=== PATIENT | female | born 1985 | race Hispanic/Latino ===

== ENCOUNTER 2017-02-03 15:38 | Emergency (ER) | payer OTHER ==
[2017-02-03 15:44] VITALS: BP 125/81; PULSE 76; RESP 16; TEMP 97.7; O2SAT 100
[2017-02-03] MEDS ORDERED: Emtricitabine-Tenofovir 200 mg-300 mg Tab PO STA ×2 (15:45→17:13)
[2017-02-03 16:23] LABS: RBC URINE 1 /hpf (0-3); URINE BILIRUBIN NEGATIVE (NEGATIVE); URINE BLOOD NEGATIVE (NEGATIVE); URINE COLOR Yellow (YELLOW); URINE GLUCOSE (UA) NORMAL (Normal); URINE KETONE NEGATIVE (NEGATIVE); URINE LEUKOCYTE ESTERASE NEG Leu/uL (Negative); URINE PROTEIN NEGATIVE (NEGATIVE); WBC URINE < 1 /hpf (0-5)
[2017-02-03 16:40] LABS: BASO % 0.5 % (0.0-2.0); EOS # 0.1 K/uL (0.0-0.7); EOS % 1.1 % (0.0-4.0); HEMATOCRIT 38.4 % (34.0-47.0); LYMPH # 2.6 K/uL (1.0-4.3); LYMPH % 38.1 % (20.0-40.0); MEAN CELL VOLUME 87.7 fL (81.0-99.0); MEAN CORPUSCULAR HGB CONC 34.2 g/dL (33.0-37.0); MEAN PLATELET VOLUME 9.6 fL (7.2-11.7); MONO # 0.4 K/uL (0.0-0.8); MONO % 6.1 % (0.0-10.0); RED CELL DISTRIBUTION WIDTH 13.4 % (11.5-14.5); WHITE BLOOD COUNT 6.9 K/uL (4.8-10.8)
[2017-02-03 17:01] LABS: CHLORIDE 101 mmol/L (98-107)
[2017-02-03 17:02] LABS: POTASSIUM 3.7 mmol/L (3.6-5.2); SODIUM 135 mmol/L (132-148)
[2017-02-03 17:04] LABS: AMYLASE 130 U/L (30-110); BILIRUBIN,TOTAL 0.8 mg/dL (0.2-1.3); CARBON DIOXIDE 24 mmol/L (22-30); GFR AFRICAN-AMERICAN > 60
[2017-02-03 17:05] LABS: ALKALINE PHOSPHATASE 47 U/L (38-126); ALT/SGPT 24 U/L (9-52); AST/SGOT 26 U/L (14-36); BLOOD UREA NITROGEN 11 mg/dL (7-17); CALCIUM 9.2 mg/dl (8.6-10.4); GLUCOSE,RANDOM 79 mg/dL (65-105); TOTAL PROTEIN 8.1 g/dL (6.3-8.3)
[2017-02-03] MEDS ORDERED: Emtricitabine-Tenofovir 200 mg-300 mg Tab PO NR (17:15)
--- NOTE | 2017-02-03 17:28 | C.PDOC ---
Time Seen by Provider: 02/03/17 15:42 Chief Complaint (Nursing): Needle Stick Past Medical History Vital Signs: Last Vital Signs Temp 97.7 F 02/03/17 15:42 Pulse 76 02/03/17 15:42 Resp 16 02/03/17 15:42 BP 125/81 02/03/17 15:42 Pulse Ox 100 02/03/17 15:42 - Social History Hx Alcohol Use: No Hx Substance Use: No - Immunization History Hx Tetanus Toxoid Vaccination: No Hx Influenza Vaccination: No Hx Pneumococcal Vaccination: No ED Course And Treatment - Laboratory Results Result Diagrams: 02/03/17 16:22 02/03/17 16:22 O2 Sat by Pulse Oximetry: 100 Disposition Counseled Patient/Family Regarding: Diagnosis - Disposition Referrals: [facility] [Outside] Disposition: HOME/ ROUTINE Disposition Time: 17:23 Condition: STABLE Prescriptions: Dolutegravir Sodium [Tivicay] 50 mg PO DAILY #3 tab Emtricitabine/Tenofovir (Tdf) [Truvada 200 mg-300 mg Tablet] 1 each PO DAILY #3 tablet Instructions: Needle Stick Injuries (ED) Forms: [facility] (Bengali), General Discharge Instructions - POA Present On Arrival: None - Clinical Impression Clinical Impression: Needle stick injury
--- NOTE | 2017-02-03 17:39 | C.PDOC ---
History Of Present Illness 31 yo female c/o puncture wound to right 2nd finger. Pt put scalpel in her pant pocket from previous I&D procedure and punctured her finger. No change in sensation. Time Seen by Provider: 02/03/17 15:42 Chief Complaint (Nursing): Needle Stick History Per: Patient History/Exam Limitations: no limitations Onset/Duration Of Symptoms: Mins Current Symptoms Are (Timing): Still Present Past Medical History Vital Signs: Last Vital Signs Temp 97.7 F 02/03/17 15:42 Pulse 76 02/03/17 15:42 Resp 16 02/03/17 15:42 BP 125/81 02/03/17 15:42 Pulse Ox 100 02/03/17 17:31 Family History: States: Unknown Family Hx - Social History Hx Alcohol Use: No Hx Substance Use: No - Immunization History Hx Tetanus Toxoid Vaccination: No Hx Influenza Vaccination: No Hx Pneumococcal Vaccination: No Review Of Systems Except As Marked, All Systems Reviewed And Found Negative. Physical Exam - Physical Exam Appears: Well, Non-toxic, No Acute Distress Skin: Warm, Dry, Other ((+) puncture wound to right second finger) Head: Atraumatic, Normacephalic Eye(s): bilateral: Normal Inspection, EOMI Nose: Normal Oral Mucosa: Moist Neck: Normal, Supple Chest: Symmetrical Respiratory: No Accessory Muscle Use Extremity: Normal ROM, Capillary Refill (< 2 sec) Pulses: Left Radial: Normal, Right Radial: Normal Neurological/Psych: Oriented x3, Normal Speech, Normal Motor, Normal Sensation ED Course And Treatment - Laboratory Results Result Diagrams: 02/03/17 16:22 02/03/17 16:22 O2 Sat by Pulse Oximetry: 100 Progress Note: Tetanus given. Trivay and Truvada ordered. Disposition - Disposition Referrals: [facility] [Outside] Disposition: HOME/ ROUTINE Disposition Time: 17:40 Condition: STABLE Prescriptions: Dolutegravir Sodium [Tivicay] 50 mg PO DAILY #3 tab Emtricitabine/Tenofovir (Tdf) [Truvada 200 mg-300 mg Tablet] 1 each PO DAILY #3 tablet Instructions: Needle Stick Injuries (ED) Forms: General Discharge Instructions, [facility] (Moh[place]) - Clinical Impression Clinical Impression: Needle stick injury
== END 2017-02-03 17:42 | disposition home or self-care (01) ==
LOC: C.ER 15:38
DX: S61.230A Puncture wound without foreign body of right index finger without damage to nail, initial encounter (principal); W45.8XXA Other foreign body or object entering through skin, initial encounter; Y92.89 Other specified places as the place of occurrence of the external cause; Y99.0 Civilian activity done for income or pay